=== PATIENT | female | born 1990 | race Two or more races ===

== ENCOUNTER 2024-04-28 12:40 | Emergency (ER) | payer OTHER ==
[~2024-04-28] VITALS: Ht 152.4 cm; Wt 47.5 kg
--- NOTE | 2024-04-28 13:21 | ED.PDOC ---
Psychiatric HPI Comments 34y F who presents to the ED for chief complaint of mental health. Pt states she is in the ED for refill of her medications as pt primary provider office is closed. Pt states she needs refill of her Haldol as she feels she is entering a psychosis state after recent diagnosis of bipolar disorder at psych facility. Pt in the ED otherwise denies any active suicidal or homicidal ideations. Pt denies any auditory or visual hallucinations. Pt otherwise denies any other symptoms at this time. Chief Complaint: Mental Health Time Seen by MD: 13:13 Reviewed Notes: Medications, Allergies Information Source: Patient Mode of Arrival: Ambulatory Past Medical History Past Medical History (Other): bipolar Surgical History: Denies all surgeries SPEECH THERAPIST TECHNICIAN History: Denies all SPEECH THERAPIST TECHNICIAN Hx Family History Family History: Reviewed,noncontributory to illness Social History Smoker: Non-Smoker Alcohol: Denies ETOH Use Drugs: Denies Drug Use Lives In: Home Constitutional: denies: chills, diaphoresis, fatigue, fever, malaise, sweats, weakness, others EENTM: denies: blurred vision, double vision, ear bleeding, ear discharge, ear drainage, ear pain, ear ringing, eye pain, eye redness, hearing loss, mouth pain, mouth swelling, nasal discharge, nose bleeding, nose congestion, nose pain, photophobia, tearing, throat pain, throat swelling, voice changes, others Respiratory: denies: cough, hemoptysis, orthopnea, SOB at rest, shortness of breath, SOB with excertion, stridor, wheezing, others Cardiovascular: denies: chest pain, dizzy spells, diaphoresis, Dyspnea on exertion, edema, irregular heart beat, left arm pain, lightheadedness, palpitations, PND, syncope, others Gastrointestinal: denies: abdomen distended, abdominal pain, blood streaked bowels, constipated, diarrhea, dysphagia, difficulty swallowing, hematemesis, melena, nausea, poor appetite, poor fluid intake, rectal bleeding, rectal pain, vomiting, others Genitourinary: denies: abnormal vagina bleeding, burning, dyspareunia, dysuria, flank pain, frequency, hematuria, incontinence, pain, , vagina discharge, urgency, others Neurological: denies: dizziness, fainting, headache, left sided numbness, left sided weakness, numbness, paresthesia, pre-existing deficit, right sided numbness, right sided weakness, seizure, speech problems, tingling, tremors, weakness, others Musculoskeletal: denies: back pain, gout, joint pain, joint swelling, muscle pain, muscle stiffness, neck pain, others Integumetry: denies: bruises, change in color, change in hair/nails, dryness, laceration, lesions, lumps, rash, wounds, others Allergic/Immunocompromised: denies: Difficulty Healing, Frequent Infections, Hives, Itching, others Hematologic/Lymphatic: denies: anemia, blood clots, easy bleeding, easy bruising, swollen glands, others Endocrine: denies: excessive hunger, excessive sweating, excessive thirst, excessive urination, flushing, intolerance to cold, intolerance to heat, unexplained weight gain, unexplained weight loss, others Psychiatric: reports: bipolar disorder; denies: anxiety, depression, hopeless, panic disorder, schizophrenia, sleepless, suicidal, others All Other Systems: Reviewed and Negative Physical Exam General Appearance: No Apparent Distress, Normal HEENT: Normal ENT Inspection, Pharynx Normal, TMs Normal Neck: Full Range of Motion, Non-Tender, Normal, Normal Inspection Respiratory: Chest Non-Tender, Lungs Clear, No Accessory Muscle Use, No Respiratory Distress, Normal Breath Sounds Cardiovascular: No Edema, No JVD, No Murmur, No Gallop, Normal Peripheral Pulses, Regular Rate/Rhythm Breast Exam: Deferred Gastrointestinal: No Organomegaly, Non Tender, No Pulsatile Mass, Normal Bowel Sounds, Soft Genitalia: Deferred Pelvic: Deferred Rectal: Deferred Extremities: No calf tenderness, Normal capillary refill, Normal inspection, Normal range of motion, Non-tender, No pedal edema Musculoskeletal : Apperance: Normal Neurologic: Alert, hotel baggage handler II-XII nml as Tested, No Motor Deficits, Normal Affect, Normal Mood, No Sensory Deficits Cerebellar Function: Normal Reflexes: Normal Skin: Dry, Normal Color, Warm Lymphatic: No Adenopathy Was a procedure done? Was a procedure done?: No Psych Differential Dx Psych. Differential Dx: Bipolar Disorder, Depression, Schizoprenia Intoxication Differential Dx: Medical Noncompliance Other Differentail Dx med refill X-Ray, Labs, Meds, VS Vital Signs Date Time Temp Pulse Resp B/P (MAP) Pulse Ox O2 Delivery O2 Flow Rate FiO2 04/28/24 14:53 74 16 04/28/24 14:53 97.8 74 16 95/42 (59) 99 97.8 04/28/24 12:56 99.3 68 12 95/55 (68) 92 Current Medications Medications (Trade) Dose Ordered Sig/Paul Route Start Time Stop Time Status Last Admin Haloperidol Lactate (Haldol) 5 mg ONCE ONCE IM 04/28/24 13:15 04/28/24 13:16 DC 04/28/24 15:00 Diphenhydramine HCl (Benadryl Injection) 25 mg ONCE ONCE IM 04/28/24 13:15 04/28/24 13:16 DC 04/28/24 15:00 Alprazolam (Xanax Tablet) 0.5 mg ONCE ONCE PO 04/28/24 16:30 04/28/24 16:31 DC 04/28/24 16:32 Time of 1ST Reevaluation: 13:45 Reevaluation 1ST: Unchanged Patient Education/Counseling: Diagnosis, Treatment Family Education/Counseling: Diagnosis, Treatment Additional Information pt had: no prior external notes the following tests were ordered in the ED: none independent historians: mother reviewed and agreed with results interpreted by independent provider: none results and treatments performed in the ED were discussed with: patient and medical personnel Departure 1 Departure Time of Disposition: 16:38 Impression: Primary Impression: Anxiety Disposition: 01 HOME / SELF CARE / HOMELESS Condition: Good Discharged With: Self Critical Care Note Critical Care Time?: No Stability Stability form required: No Heart Score Heart Score: Heart Score Response (Comments) Value History N/A 0 EKG N/A 0 Age N/A 0 Risk Factors N/A 0 Troponin N/A 0 Total 0 I personally scribed for QUINCY HUTN MD ([facility] on 04/28/24 at 13:21. Electronically submitted by Sandra Parker ([facility] [place]). QUINCY HUNT MD Apr 28, 2024 13:21
[2024-04-28 14:53] VITALS: BP 95/42; PULSE 74; RESP 16; TEMP 97.8; O2SAT 99
[2024-04-28] MEDS: diphenhdrAMINE HCL 50 MG/1 ML VL IM ONE (15:00)
[2024-04-28] MEDS: HALOPERIDOL LACTATE 5 MG/ML INJ VIAL IM ONE (15:00)
[2024-04-28] MEDS: ALPRAZolam 0.5 MG TAB PO ONE (16:32)
== END 2024-04-28 16:42 | disposition home or self-care (01) ==
LOC: ER 12:40
DX: F41.9 Anxiety disorder, unspecified (principal)
CPT/HCPCS: 96372; 99284; J1200; J1630